=== PATIENT | male | born 1970 | race American Indian/Alaskan Native ===

== ENCOUNTER 2017-06-13 12:49 | Emergency (ER) | payer OTHER ==
--- NOTE | 2017-06-13 14:13 | Cat Scan Report ---
FINAL REPORT EXAM: CT HEAD/BRAIN WO CON HISTORY: persistent headache TECHNIQUE: CT of the head was performed. No intravenous contrast was administered. PRIORS: None. FINDINGS: There is no evidence of intracranial hemorrhage. There is no edema, mass effect or midline shift. There are no abnormal extra-axial fluid collections. The ventricles are appropriate for brain volume. There is no skull fracture seen. The visualized aspects of the sinuses are clear. IMPRESSION: There is no acute intracranial abnormality identified.
--- NOTE | 2017-06-13 14:21 | Emergency Department Report ---
ED Headache HPI - General Chief Complaint: Headache Stated Complaint: MARTÍNEZ FOR A WEEK Time Seen by Provider: 06/13/17 13:26 - History of Present Illness Initial Comments: 47-year-old male past medical history none presents with complaint of nearly 2 weeks of anterior headache intermittent. Patient denies fever chills nausea vomiting photo or phonophobia denies any aura. States he has had some headaches similar to this in the past. Patient is fully awake alert and oriented 3. Denies any associated lightheadedness or dizziness. States he has some dental cavities which he has not had addressed. States he has had cavity or for some time denies any possible drainage from mouth currently adamantly denies fevers or chills. No visible facial swelling. Patient denies nausea vomiting fever chills chest pain palpitations shortness of breath up or lower extremity paresthesias. Denies any trauma to head or neck. Patient is fully lucid ambulatory and cooperative during exam. Accompanied by at bedside. Patient denies blurry vision lightheadedness or vertigo associated with headache. Currently a 5 out of 10. Timing/Duration: other (2 weeks) Quality: moderate Head Injury Location: frontal Recent Head Trauma: no recent headache/trauma Modifying Factors: improves with: cold therapy Associated Symptoms: denies symptoms Allergies/Adverse Reactions: Allergies No Known Allergies Allergy (Verified 06/13/17 12:56) Home Medications: Ambulatory Orders Amoxicillin 500 mg PO BID #30 capsule 06/13/17 Chlorhexidine Mouthwash [Peridex] 15 ml MM BID #1 bottle 06/13/17 Naproxen 500 mg PO BID PRN #30 tablet 06/13/17 ED Review of Systems ROS: Stated complaint: MARTÍNEZ FOR A WEEK Other details as noted in HPI Constitutional: denies: chills, fever Eyes: denies: eye pain, eye discharge, vision change ENT: dental pain. denies: ear pain, throat pain Respiratory: denies: cough, shortness of breath, wheezing Cardiovascular: denies: chest pain, palpitations Endocrine: no symptoms reported Gastrointestinal: denies: abdominal pain, nausea, diarrhea Genitourinary: denies: urgency, dysuria Musculoskeletal: denies: back pain, joint swelling, arthralgia Skin: denies: rash, lesions Neurological: as per HPI, headache. denies: weakness, paresthesias Psychiatric: denies: anxiety, depression Hematological/Lymphatic: denies: easy bleeding, easy bruising ED Past Medical Hx - Past Medical History Previous Medical History?: No - Surgical History Past Surgical History?: Yes Additional Surgical History: Left hand surgery - Social History Smoking Status: Never Smoker Substance Use Type: None - Medications Home Medications: Home Medications Medication Instructions Recorded Confirmed Last Taken Type Amoxicillin 500 mg PO BID #30 capsule 06/13/17 Unknown Rx Chlorhexidine Mouthwash [Peridex] 15 ml MM BID #1 bottle 06/13/17 Unknown Rx Naproxen 500 mg PO BID PRN #30 tablet 06/13/17 Unknown Rx ED Physical Exam - General Limitations: No Limitations General appearance: alert, in no apparent distress - Head Head exam: Present: atraumatic, normocephalic - Eye Eye exam: Present: normal appearance, PERRL, EOMI Pupils: Present: normal accommodation - ENT ENT exam: Present: normal exam, mucous membranes moist - Expanded ENT Exam Expanded Teeth exam: Present: dental caries 1 - Dental Tenderness (dental cavity here) - Neck Neck exam: Present: normal inspection, full ROM (neck flexiona and extension fully intact) - Respiratory Respiratory exam: Present: normal lung sounds bilaterally. Absent: respiratory distress - Cardiovascular Cardiovascular Exam: Present: regular rate, normal rhythm. Absent: systolic murmur, diastolic murmur, rubs, gallop - GI/Abdominal GI/Abdominal exam: Present: soft, normal bowel sounds - Rectal Rectal exam: Present: deferred - Extremities Exam Extremities exam: Present: normal inspection - Back Exam Back exam: Present: normal inspection - Neurological Exam Neurological exam: Present: alert, oriented X3, CN II-XII intact, normal gait - Expanded Neurological Exam Expanded Patient oriented to: Present: person, place, time Cranial nerves: EOM's Intact: Normal, Facial Sensation: Normal Cerebellar function: Finger to Nose: Normal, Heel to Richardson: Normal, Romberg: Normal Sensory exam: Upper Extremity Light Touch: Normal, Lower Extremity Light Touch: Normal Motor strength exam: RUE: 5, LUE: 5, RLE: 5, LLE: 5 DTR: tricep (R): 3+, tricep (L): 3+, knee (R): 3+, knee (L): 3+ Best Eye Response (Cristiane): (4) open spontaneously Best Motor Response (Foster): (6) obeys commands Best Verbal Response (Cristiane): (5) oriented Cristiane Total: 15 - Psychiatric Psychiatric exam: Present: normal affect, normal mood - Skin Skin exam: Present: warm, dry, intact, normal color. Absent: rash ED Course Vital Signs 06/13/17 06/13/17 12:56 14:41 Temperature 98.4 F Pulse Rate 97 H Respiratory 18 18 Rate Blood Pressure 161/93 O2 Sat by Pulse 98 Oximetry ED Medical Decision Making - Medical Decision Making A/P: Migraine headache, dental cavity 1-naproxen when necessary, amoxicillin ten-day course, Orajel when necessary, Peridex mouthwash daily basis 2- I provided patient with information for multiple dental clinics to follow up and stressed the importance of dental follow-up as he has multiple cavities that require dental fixation or instrumentation 3- no clinical signs of facial abscess, no Adi's angina, no induration or cellulitis of floor of mouth or tongue 4- patient able to tolerate by mouth before discharge 5- no signs of facial infection. Advised patient that if he does not take antibiotics with follow-up with a dentist as soon as possible that a can result in potentially serious or dangerous infection to develop in jaw or face. Patient states that he understood these instructions. I advised patient to return to the ED for any persistent unrelenting nausea or vomiting fever or chills or headaches. 6-CT brain unremarkable. Patient is fully lucid awake alert and oriented during clinical exam no neurological deficits on clinical exam. . Cranial nerves 2, 3, 4, 5, 6, 7, 8,10, 11, 12 intact on clinical exam, patient is fully lucid awake alert and oriented 3 conversant. Denies any upper or lower extremity paresthesias and has 5/5 strength in bilateral upper and lower extremities on clinical exam. Critical care attestation.: If time is entered above; I have spent that time in minutes in the direct care of this critically ill patient, excluding procedure time. ED Disposition Clinical Impression: Dental cavity Migraine Qualifiers: Migraine type: without aura Status migrainosus presence: without status migrainosus Intractability: not intractable Qualified Code(s): G43.009 - Migraine without aura, not intractable, without status migrainosus Disposition: - TO HOME OR SELFCARE Is pt being admited?: No Does the pt Need Aspirin: No Condition: Stable Instructions: Migraine Headache (ED), Tension Headache (ED), Acute Headache (ED ), Dental Caries (ED) Additional Instructions: [email or web address] Prescriptions: Amoxicillin 500 mg PO BID #30 capsule Chlorhexidine Mouthwash [Peridex] 15 ml MM BID #1 bottle Naproxen 500 mg PO BID PRN #30 tablet PRN Reason: Pain Referrals: [facility] [place] [Outside] - 3-5 Days [facility] [Outside] - 3-5 Days PRIMARY CARE,MD [Primary Care Provider] - 3-5 Days [facility] [Outside] - 3-5 Days Forms: Accompanied Note, Work/School Release Form(ED) Time of Disposition: 14:38
[2017-06-13] MEDS ORDERED: MOTRIN PO ONE (14:22)
[2017-06-13] MEDS ORDERED: REGLAN PO ONE (14:22)
[2017-06-13 15:42] VITALS: BP 141/98
== END 2017-06-13 15:39 | disposition home or self-care (01) ==
LOC: ED 12:49
DX: K02.9 Dental caries, unspecified (principal); G43.909 Migraine, unspecified, not intractable, without status migrainosus
CPT/HCPCS: 70450

== ENCOUNTER 2017-09-12 14:42 | Emergency (ER) | payer OTHER ==
--- NOTE | 2017-09-12 17:53 | Emergency Department Report ---
Blank Doc - Documentation Documentation: She is a 47-year-old male that presents emergency room with a productive cough with yellow sputum 2 weeks. Patient complains of fever and body aches 2 days. Patient complains of nasal congestion and feeling weak 2 days. Patient denies other past medical history allergies. Patient denies chest pain shortness breath. Due to the length of time of complaints will order a CBC, chest x-ray, CMP, flu and strep. Lung sounds are clear to auscultation throat is red.
[2017-09-12 18:09] LABS: Hematocrit 44.7 % (35.5-45.6); Mean Corpuscular HGB Conc 34 % (32-34); Mean Corpuscular Hemoglobin 31 pg (28-32); Mean Corpuscular Volume 91 fl (84-94); Platelet Count 174 K/mm3 (140-440); Red Cell Distribution Width 13.9 % (13.2-15.2)
[2017-09-12 18:31] LABS: BUN/Creatinine Ratio 13; Blood Urea Nitrogen 13 mg/dL (9-20); Calcium 9.1 mg/dL (8.4-10.2); Hemolysis Index 5
--- NOTE | 2017-09-12 18:31 | XRay Report ---
FINAL REPORT PROCEDURE: XR CHEST ROUTINE 2V TECHNIQUE: PA and lateral chest radiographs were obtained. CPT 37648 HISTORY: Upper Respiratory Infection COMPARISON: No prior studies are available for comparison. FINDINGS: Heart: Normal. Mediastinum/Vessels: Normal. Lungs/Pleural space: Normal. Bony thorax: No acute osseous abnormality. Other: IMPRESSION: Negative examination.
[2017-09-12] MEDS ORDERED: DUONEB *Not for PRN Use IH ONE (19:23)
--- NOTE | 2017-09-12 19:27 | Emergency Department Report ---
- General Chief Complaint: Upper Respiratory Infection Stated Complaint: FLU LIKE SYMPTOMS Time Seen by Provider: 09/12/17 19:10 Source: patient Mode of arrival: Ambulatory Limitations: No Limitations - History of Present Illness Initial Comments: 47-year-old male past medical history smoker presents with complaint of 2 weeks of slightly productive cough with 2 days of body aches and nasal congestion and coughing fits. Patient denies chest pain palpitations does state that after coughing fits he is short of breath. Denies any pleuritic chest pain. Denies any nausea or vomiting. Patient is awake alert and oriented 3 fully lucid. Primarily complaining of cough. States he has sore throat after coughing. States that his may also have cold like symptoms. Patient speaking in full sentences. States he has been taking some abeq-qjs-vlzxrcj medicines with minimal relief of his cough. Patient's screening by ED attending earlier. MD Complaint: cough, sore throat, rhinorrhea, nasal congestion Onset/Timin -: week(s) Severity: moderate Improves With: nothing Worsens With: nothing Associated Symptoms: myalgias, cough Treatments Prior to Arrival: none - Related Data Previous Rx's Medication Instructions Recorded Last Taken Type Amoxicillin 500 mg PO BID #30 capsule 06/13/17 Unknown Rx Chlorhexidine Mouthwash [Peridex] 15 ml MM BID #1 bottle 06/13/17 Unknown Rx Naproxen 500 mg PO BID PRN #30 tablet 06/13/17 Unknown Rx Albuterol Sulfate [Ventolin Hfa] 1 puff IH Q4H PRN #1 hfa.aer.ad 09/12/17 Unknown Rx Azithromycin [Zithromax Z-DAKOTA] 250 mg PO QDAY #1 pack 09/12/17 Unknown Rx Ibuprofen [Motrin] 600 mg PO Q8H PRN #15 tablet 09/12/17 Unknown Rx Phenylephrine/Dm/Acetaminop/GG 10 ml PO Q4H PRN #1 liquid 09/12/17 Unknown Rx [Mucinex Smvm-Lny-Qbqwqeqjvc Lq] Allergies Allergy/AdvReac Type Severity Reaction Status Date / Time No Known Allergies Allergy Verified 06/13/17 12:56 ED Review of Systems ROS: Stated complaint: FLU LIKE SYMPTOMS Other details as noted in HPI Constitutional: malaise. denies: chills, fever Eyes: denies: eye pain, eye discharge, vision change ENT: denies: ear pain, throat pain Respiratory: cough. denies: shortness of breath, wheezing Cardiovascular: denies: chest pain, palpitations Endocrine: no symptoms reported Gastrointestinal: denies: abdominal pain, nausea, diarrhea Genitourinary: denies: urgency, dysuria Musculoskeletal: denies: back pain, joint swelling, arthralgia Skin: denies: rash, lesions Neurological: denies: headache, weakness, paresthesias Psychiatric: denies: anxiety, depression Hematological/Lymphatic: denies: easy bleeding, easy bruising ED Past Medical Hx - Past Medical History Previous Medical History?: No - Surgical History Additional Surgical History: Left hand surgery - Social History Smoking Status: Current Every Day Smoker Substance Use Type: Alcohol - Medications Home Medications: Home Medications Medication Instructions Recorded Confirmed Last Taken Type Amoxicillin 500 mg PO BID #30 capsule 06/13/17 Unknown Rx Chlorhexidine Mouthwash [Peridex] 15 ml MM BID #1 bottle 06/13/17 Unknown Rx Naproxen 500 mg PO BID PRN #30 tablet 06/13/17 Unknown Rx Albuterol Sulfate [Ventolin Hfa] 1 puff IH Q4H PRN #1 hfa.aer.ad 09/12/17 Unknown Rx Azithromycin [Zithromax Z-DAKOTA] 250 mg PO QDAY #1 pack 09/12/17 Unknown Rx Ibuprofen [Motrin] 600 mg PO Q8H PRN #15 tablet 09/12/17 Unknown Rx Phenylephrine/Dm/Acetaminop/GG 10 ml PO Q4H PRN #1 liquid 09/12/17 Unknown Rx [Mucinex Nocs-Ufm-Wdbkarlacl Lq] ED Physical Exam - General Limitations: No Limitations General appearance: alert, in no apparent distress - Head Head exam: Present: atraumatic, normocephalic - Eye Eye exam: Present: normal appearance, PERRL, EOMI - ENT ENT exam: Present: normal exam, normal orophraynx, mucous membranes moist - Neck Neck exam: Present: normal inspection - Respiratory Respiratory exam: Present: wheezes (slight wheezing left lung field). Absent: respiratory distress - Cardiovascular Cardiovascular Exam: Present: regular rate, normal rhythm. Absent: systolic murmur, diastolic murmur, rubs, gallop - GI/Abdominal GI/Abdominal exam: Present: soft (abdomen soft nontender nondistended), normal bowel sounds - Rectal Rectal exam: Present: deferred - Extremities Exam Extremities exam: Present: normal inspection - Back Exam Back exam: Present: normal inspection - Neurological Exam Neurological exam: Present: alert, oriented X3 - Psychiatric Psychiatric exam: Present: normal affect, normal mood - Skin Skin exam: Present: warm, dry, intact, normal color. Absent: rash ED Course Vital Signs 09/12/17 14:48 Temperature 98.8 F Pulse Rate 91 H Respiratory 18 Rate Blood Pressure 136/95 O2 Sat by Pulse 97 Oximetry ED Medical Decision Making - Lab Data Result diagrams: 09/12/17 17:58 09/12/17 17:58 - Medical Decision Making A/P: Acute bronchitis 1-albuterol inhaler, Mucinex, Tessalon Perles when necessary 2-Z-Dakota as per 3-chest x-ray unremarkable, CBC and BMP unremarkable, Monospot test neg 4- follow-up with primary care doctor, vital signs stable for discharge. I advised patient to follow up with primary care or to return to the ED for any inability to tolerate by mouth fluid or food persistent nausea and vomiting severe fevers and chills or fevers persistently above 100.F4 despite antipyretic use, severe lethargy. Patient stated he understood my instructions. I advised patient to remain well-hydrated. Critical care attestation.: If time is entered above; I have spent that time in minutes in the direct care of this critically ill patient, excluding procedure time. ED Disposition Clinical Impression: Upper respiratory infection Qualifiers: URI type: unspecified URI Qualified Code(s): J06.9 - Acute upper respiratory infection, unspecified Acute bronchitis Qualifiers: Bronchitis organism: unspecified organism Qualified Code(s): J20.9 - Acute bronchitis, unspecified Disposition: DC-01 TO HOME OR SELFCARE Is pt being admited?: No Does the pt Need Aspirin: No Condition: Stable Instructions: Acute Bronchitis (ED), Upper Respiratory Infection (ED), Cold Symptoms (ED) Prescriptions: Albuterol Sulfate [Ventolin Hfa] 1 puff IH Q4H PRN #1 hfa.aer.ad PRN Reason: Wheezing Azithromycin [Zithromax Z-DAKOTA] 250 mg PO QDAY #1 pack Ibuprofen [Motrin] 600 mg PO Q8H PRN #15 tablet PRN Reason: Pain Phenylephrine/Dm/Acetaminop/GG [Mucinex Imgh-Jeu-Cglyeelqje Lq] 10 ml PO Q4H PRN #1 liquid PRN Reason: Cough Referrals: [facility] [Outside] - 3-5 Days [facility] [Outside] - 3-5 Days Forms: Accompanied Note, Work/School Release Form(ED) Time of Disposition: 19:29
[2017-09-12 21:06] LABS: Basophils % (Manual) 0 % (0.0-1.8); Platelet Estimate Consistent w Auto; RBC Morphology Normal; Total Cells Counted 100
[2017-09-12 22:37] VITALS: BP 146/79
== END 2017-09-12 19:51 | disposition home or self-care (01) ==
LOC: ED 14:42
DX: J06.9 Acute upper respiratory infection, unspecified (principal); J20.9 Acute bronchitis, unspecified; F17.200 Nicotine dependence, unspecified, uncomplicated
CPT/HCPCS: 36415; 71046; 80048; 85007; 85025; 86308; 87116; 87400; 87430; 94640; 99284

== ENCOUNTER 2017-11-09 20:29 | Emergency (ER) | payer OTHER ==
[2017-11-09 21:01] VITALS: BP 134/90
--- NOTE | 2017-11-09 22:31 | XRay Report ---
FINAL REPORT EXAM: XR KNEE 3V RT HISTORY: fall and twisted knee COMPARISON: None available. FINDINGS: Three views of right knee obtained. Tiny suprapatellar effusion. Bony structures are intact. Joint spaces are preserved. No acute fracture dislocation. IMPRESSION: No acute bony abnormality.
[2017-11-09] MEDS ORDERED: PERCOCET 5/325 ONE (22:58)
[2017-11-09] MEDS ORDERED: PERCOCET 5/325 PO ONE (23:03)
[2017-11-09] MEDS ORDERED: TORADOL IM ONE (23:52)
--- NOTE | 2017-11-09 23:55 | Emergency Department Report ---
ED Lower Extremity HPI - General Chief Complaint: Extremity Injury, Lower Stated Complaint: RT KNEE PAIN Time Seen by Provider: 11/09/17 23:40 Source: patient Mode of arrival: Wheelchair Limitations: No Limitations - History of Present Illness Initial Comments: 47-year-old -[place] male comes to the emergency room status post a 10- month-old infant female. Patient put it is twisted his right knee and states he felt something pop. This happened about 1 hour and half prior to arrival. Patient reports no past medical history currently takes no medications on a daily basis and has no known drug allergies. MD Complaint: knee injury -: This evening Injury: Knee: Right (twisted and heard something pop. Difficulty bearing weight ) Type of Injury: eversion Place: street/outdoors Severity: severe Severity scale (0 -10): 10 Context: fall Associated Symptoms: snap/pop sensation, unable to bear weight - Related Data Previous Rx's Medication Instructions Recorded Last Taken Type Amoxicillin 500 mg PO BID #30 capsule 06/13/17 Unknown Rx Chlorhexidine Mouthwash [Peridex] 15 ml MM BID #1 bottle 06/13/17 Unknown Rx Albuterol Sulfate [Ventolin Hfa] 1 puff IH Q4H PRN #1 hfa.aer.ad 09/12/17 Unknown Rx Azithromycin [Zithromax Z-DAKOTA] 250 mg PO QDAY #1 pack 09/12/17 Unknown Rx Ibuprofen [Motrin] 600 mg PO Q8H PRN #15 tablet 09/12/17 Unknown Rx Phenylephrine/Dm/Acetaminop/GG 10 ml PO Q4H PRN #1 liquid 09/12/17 Unknown Rx [Mucinex Wuty-Cea-Aaxymheqfu Lq] Acetaminophen/Codeine [Tylenol 1 tab PO Q6H PRN #12 tab 11/09/17 Unknown Rx /Codeine # 3 tab] Naproxen 500 mg PO BID PRN #30 tablet 11/09/17 Unknown Rx Allergies Allergy/AdvReac Type Severity Reaction Status Date / Time No Known Allergies Allergy Verified 06/13/17 12:56 ED Review of Systems ROS: Stated complaint: RT KNEE PAIN Other details as noted in HPI Comment: All other systems reviewed and negative Gastrointestinal: denies: abdominal pain, nausea, diarrhea Genitourinary: denies: urgency, dysuria Musculoskeletal: arthralgia (right knee) Skin: denies: rash, lesions ED Past Medical Hx - Past Medical History Previous Medical History?: No - Surgical History Past Surgical History?: Yes Additional Surgical History: Left hand surgery - Social History Smoking Status: Current Every Day Smoker Substance Use Type: None - Medications Home Medications: Home Medications Medication Instructions Recorded Confirmed Last Taken Type Amoxicillin 500 mg PO BID #30 capsule 06/13/17 Unknown Rx Chlorhexidine Mouthwash [Peridex] 15 ml MM BID #1 bottle 06/13/17 Unknown Rx Albuterol Sulfate [Ventolin Hfa] 1 puff IH Q4H PRN #1 hfa.aer.ad 09/12/17 Unknown Rx Azithromycin [Zithromax Z-DAKOTA] 250 mg PO QDAY #1 pack 09/12/17 Unknown Rx Ibuprofen [Motrin] 600 mg PO Q8H PRN #15 tablet 09/12/17 Unknown Rx Phenylephrine/Dm/Acetaminop/GG 10 ml PO Q4H PRN #1 liquid 09/12/17 Unknown Rx [Mucinex Ufpo-Pql-Cijjcqmtfv Lq] Acetaminophen/Codeine [Tylenol 1 tab PO Q6H PRN #12 tab 11/09/17 Unknown Rx /Codeine # 3 tab] Naproxen 500 mg PO BID PRN #30 tablet 11/09/17 Unknown Rx ED Physical Exam - General Limitations: No Limitations General appearance: alert, in no apparent distress, other (appears to be in pain ) - Head Head exam: Present: atraumatic, normocephalic - Neck Neck exam: Present: normal inspection - Expanded Lower Extremity Exam Right Hip exam: Present: full ROM. Absent: tenderness Upper Leg exam: Present: normal inspection, full ROM. Absent: tenderness Knee exam: Present: tenderness (posterior anterior lateral and medial of the patella,), swelling (supra patella), full knee extension. Absent: abrasion, laceration, ecchymosis, deformity Lower Leg exam: Present: normal inspection, full ROM. Absent: tenderness Ankle exam: Present: normal inspection, full ROM Foot/Toe exam: Present: normal inspection, full ROM Neuro vascular tendon exam: Present: no vascular compromise ED Course Vital Signs 11/09/17 11/09/17 20:53 21:16 Temperature 98.5 F 98.5 F Pulse Rate 77 77 Respiratory 18 20 Rate Blood Pressure 134/90 134/90 O2 Sat by Pulse 99 100 Oximetry ED Lower Extremity MDM - Radiology Data Radiology results: report reviewed, image reviewed FINDINGS: Three views of right knee obtained. Tiny suprapatellar effusion. Bony structures are intact. Joint spaces are preserved. No acute fracture dislocation. IMPRESSION: No acute bony abnormality. Transcribed By: LMA Dictated By: LEE DENIS MD Electronically Authenticated By: LEE DENIS MD Signed Date/Time: 11/09/17 9880 Critical care attestation.: If time is entered above; I have spent that time in minutes in the direct care of this critically ill patient, excluding procedure time. ED Disposition Clinical Impression: Right knee injury Qualifiers: Encounter type: initial encounter Qualified Code(s): S89.91XA - Unspecified injury of right lower leg, initial encounter Disposition: TO HOME OR SELFCARE Is pt being admited?: No Does the pt Need Aspirin: No Condition: Stable Instructions: Arthralgia (ED), Knee Pain (ED), Knee Effusion (ED) Additional Instructions: Please take pain medication as prescribed. Please be sure to eat prior to taking Naprosyn. Please do not operate heavy machinery while taking Tylenol No. 3. Please follow up with orthopedist in the next 24-48 hours. Please use crutches, no weightbearing to the right knee/leg. Wear knee immobilizer and only take off to bathe or shower. Prescriptions: Acetaminophen/Codeine [Tylenol /Codeine # 3 tab] 1 tab PO Q6H PRN #12 tab PRN Reason: Pain Naproxen 500 mg PO BID PRN #30 tablet PRN Reason: Pain Referrals: PRIMARY CARE, [Primary Care Provider] - 3-5 Days TRE MINAYA MD [Staff Physician] - 3-5 Days DELGADO CHAIREZ MD [Staff Physician] - 3-5 Days Forms: Accompanied Note, Work/School Release Form(ED)
== END 2017-11-10 00:10 | disposition home or self-care (01) ==
LOC: ED 20:29
DX: S89.91XA Unspecified injury of right lower leg, initial encounter (principal); F17.200 Nicotine dependence, unspecified, uncomplicated; X58.XXXA Exposure to other specified factors, initial encounter; Y93.89 Activity, other specified; Y92.89 Other specified places as the place of occurrence of the external cause; Y99.8 Other external cause status
CPT/HCPCS: 29505; 73562; 96372; 99284; J1885

== ENCOUNTER 2018-01-22 20:43 | Emergency (ER) | payer OTHER ==
[2018-01-22 21:07] VITALS: BP 148/97
--- NOTE | 2018-01-22 22:34 | Emergency Department Report ---
ED ENT HPI - General Chief complaint: Earache Stated complaint: EAR BLEEDING FROM INSIDE Time Seen by Provider: 01/22/18 22:30 Source: patient Mode of arrival: Ambulatory Limitations: No Limitations - History of Present Illness Initial comments: ear pain and bleeding after attempting to clean with qtip 2 hrs ago pain is 4/ 10 aching no loss of hearing , no tinnitus no fever MD complaint: ear pain Onset/Timin -: hour(s) Location: L ear Severity: moderate Severity scale (0 -10): 4 Quality: aching Consistency: constant Improves with: none Worsens with: movement Context- Ear: direct trauma, other ("I stuck a q tip in my ear") Associated Symptoms: fever. denies: cough, gum swelling, toothache, pain with swallowing, sore throat, tinnitus, hearing loss, discharge from ear, rhinorrhea - Related Data Previous Rx's Medication Instructions Recorded Last Taken Type Amoxicillin 500 mg PO BID #30 capsule 06/13/17 Unknown Rx Chlorhexidine Mouthwash [Peridex] 15 ml MM BID #1 bottle 06/13/17 Unknown Rx Albuterol Sulfate [Ventolin Hfa] 1 puff IH Q4H PRN #1 hfa.aer.ad 09/12/17 Unknown Rx Azithromycin [Zithromax Z-DAKOTA] 250 mg PO QDAY #1 pack 09/12/17 Unknown Rx Ibuprofen [Motrin] 600 mg PO Q8H PRN #15 tablet 09/12/17 Unknown Rx Phenylephrine/Dm/Acetaminop/GG 10 ml PO Q4H PRN #1 liquid 09/12/17 Unknown Rx [Mucinex Fjkv-Sza-Wfmzibeiwy Lq] Acetaminophen/Codeine [Tylenol 1 tab PO Q6H PRN #12 tab 11/09/17 Unknown Rx /Codeine # 3 tab] Naproxen 500 mg PO BID PRN #30 tablet 11/09/17 Unknown Rx Cipro/Dexameth 0.3/0.1% [Ciprodex 4 drops OT BID 5 Days #1 bottle 01/22/18 Unknown Rx OTIC] Ibuprofen 800 mg PO TID PRN #30 tablet 01/22/18 Unknown Rx Allergies Allergy/AdvReac Type Severity Reaction Status Date / Time No Known Allergies Allergy Verified 06/13/17 12:56 ED Dental HPI - General Chief complaint: Earache Stated complaint: EAR BLEEDING FROM INSIDE Time Seen by Provider: 01/22/18 22:30 Source: patient Mode of arrival: Ambulatory Limitations: No Limitations - Related Data Previous Rx's Medication Instructions Recorded Last Taken Type Amoxicillin 500 mg PO BID #30 capsule 06/13/17 Unknown Rx Chlorhexidine Mouthwash [Peridex] 15 ml MM BID #1 bottle 06/13/17 Unknown Rx Albuterol Sulfate [Ventolin Hfa] 1 puff IH Q4H PRN #1 hfa.aer.ad 09/12/17 Unknown Rx Azithromycin [Zithromax Z-DAKOTA] 250 mg PO QDAY #1 pack 09/12/17 Unknown Rx Ibuprofen [Motrin] 600 mg PO Q8H PRN #15 tablet 09/12/17 Unknown Rx Phenylephrine/Dm/Acetaminop/GG 10 ml PO Q4H PRN #1 liquid 09/12/17 Unknown Rx [Mucinex Oqzq-Syb-Mwemwwoqpl Lq] Acetaminophen/Codeine [Tylenol 1 tab PO Q6H PRN #12 tab 11/09/17 Unknown Rx /Codeine # 3 tab] Naproxen 500 mg PO BID PRN #30 tablet 11/09/17 Unknown Rx Cipro/Dexameth 0.3/0.1% [Ciprodex 4 drops OT BID 5 Days #1 bottle 01/22/18 Unknown Rx OTIC] Ibuprofen 800 mg PO TID PRN #30 tablet 01/22/18 Unknown Rx Allergies Allergy/AdvReac Type Severity Reaction Status Date / Time No Known Allergies Allergy Verified 06/13/17 12:56 ED Review of Systems ROS: Stated complaint: EAR BLEEDING FROM INSIDE Other details as noted in HPI Constitutional: denies: chills, fever Eyes: denies: eye pain, eye discharge, vision change ENT: ear pain. denies: throat pain, dental pain, hearing loss, epistaxis, congestion Respiratory: denies: cough, shortness of breath, wheezing Cardiovascular: denies: chest pain, palpitations Endocrine: no symptoms reported Gastrointestinal: denies: abdominal pain, nausea, diarrhea Genitourinary: denies: urgency, dysuria Musculoskeletal: denies: back pain, joint swelling, arthralgia Skin: denies: rash, lesions Neurological: denies: headache, weakness, paresthesias Psychiatric: denies: anxiety, depression Hematological/Lymphatic: denies: easy bleeding, easy bruising ED Past Medical Hx - Past Medical History Previous Medical History?: No - Surgical History Additional Surgical History: Left hand surgery,right leg sx - Social History Smoking Status: Current Every Day Smoker Substance Use Type: Alcohol, Marijuana - Medications Home Medications: Home Medications Medication Instructions Recorded Confirmed Last Taken Type Amoxicillin 500 mg PO BID #30 capsule 06/13/17 Unknown Rx Chlorhexidine Mouthwash [Peridex] 15 ml MM BID #1 bottle 06/13/17 Unknown Rx Albuterol Sulfate [Ventolin Hfa] 1 puff IH Q4H PRN #1 hfa.aer.ad 09/12/17 Unknown Rx Azithromycin [Zithromax Z-DAKOTA] 250 mg PO QDAY #1 pack 09/12/17 Unknown Rx Ibuprofen [Motrin] 600 mg PO Q8H PRN #15 tablet 09/12/17 Unknown Rx Phenylephrine/Dm/Acetaminop/GG 10 ml PO Q4H PRN #1 liquid 09/12/17 Unknown Rx [Mucinex Oxlm-Jbw-Wwrlixbsvl Lq] Acetaminophen/Codeine [Tylenol 1 tab PO Q6H PRN #12 tab 11/09/17 Unknown Rx /Codeine # 3 tab] Naproxen 500 mg PO BID PRN #30 tablet 11/09/17 Unknown Rx Cipro/Dexameth 0.3/0.1% [Ciprodex 4 drops OT BID 5 Days #1 bottle 01/22/18 Unknown Rx OTIC] Ibuprofen 800 mg PO TID PRN #30 tablet 01/22/18 Unknown Rx ED Physical Exam - General Limitations: No Limitations General appearance: alert, in no apparent distress - Head Head exam: Present: atraumatic, normocephalic - Eye Eye exam: Present: normal appearance, PERRL, EOMI Pupils: Present: normal accommodation - ENT ENT exam: Present: normal orophraynx, mucous membranes moist, normal external ear exam - Expanded ENT Exam Expanded TM/Canal exam: Erythema: Right TM, Left TM, Canal Discharge: Left TM (mild bloody TM intact ), Canal Tenderness: Left TM - Neck Neck exam: Present: normal inspection, full ROM. Absent: tenderness, lymphadenopathy, thyromegaly - Respiratory Respiratory exam: Present: normal lung sounds bilaterally. Absent: respiratory distress, wheezes, stridor, chest wall tenderness ED Course Vital Signs 01/22/18 21:00 Temperature 98.4 F Pulse Rate 78 Respiratory 20 Rate Blood Pressure 148/97 O2 Sat by Pulse 98 Oximetry ED Medical Decision Making - Medical Decision Making this is OE, noted mild canal dried blood no decreased hearing, plan: ciprodex 4 drops bid x 5 days , follow up with ENT in 2-3 days pt verbalized agreement and understanding of same. Critical care attestation.: If time is entered above; I have spent that time in minutes in the direct care of this critically ill patient, excluding procedure time. ED Disposition Clinical Impression: Otitis externa Qualifiers: Otitis externa type: hemorrhagic Chronicity: acute Laterality: bilateral Qualified Code(s): H60.323 - Hemorrhagic otitis externa, bilateral Disposition: TO HOME OR SELFCARE Is pt being admited?: No Does the pt Need Aspirin: No Condition: Good Instructions: Otitis Externa (ED) Prescriptions: Cipro/Dexameth 0.3/0.1% [Ciprodex OTIC] 4 drops OT BID 5 Days #1 bottle Ibuprofen 800 mg PO TID PRN #30 tablet PRN Reason: Pain , Severe (7-10) Referrals: [facility] [Outside] - 3-5 Days Forms: Work/School Release Form(ED) Time of Disposition: 22:50
== END 2018-01-22 22:53 | disposition home or self-care (01) ==
LOC: ED 20:43
DX: H60.323 Hemorrhagic otitis externa, bilateral (principal); F17.200 Nicotine dependence, unspecified, uncomplicated; F12.10 Cannabis abuse, uncomplicated; Z98.890 Other specified postprocedural states
CPT/HCPCS: 99282

== ENCOUNTER 2018-03-21 10:19 | Emergency (ER) | payer OTHER ==
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
--- NOTE | 2018-03-21 13:46 | XRay Report ---
FINAL REPORT EXAM: XR SPINE CERVICAL 2-3V HISTORY: pain TECHNIQUE: 3 views of the cervical spine PRIORS: None. FINDINGS: Hair artifact limits the examination. Prevertebral soft tissues are without swelling. No evidence of cervical fracture or vertebral compression. Multilevel degenerative changes are present at the vertebral endplates, facet joints, and uncinate joints. Spondylolisthesis is not visualized. Multilevel disc narrowing with adjacent degenerative endplate changes. IMPRESSION: No radiographically visible acute skeletal pathology Multilevel degenerative change and disc narrowing
[2018-03-21] MEDS ORDERED: ULTRAM PO ONE (13:50)
[2018-03-21 14:16] VITALS: BP 140/82
== END 2018-03-21 14:14 | disposition home or self-care (01) ==
LOC: ED 10:19
DX: M54.89 Other dorsalgia (principal); M25.461 Effusion, right knee; G89.29 Other chronic pain; F17.200 Nicotine dependence, unspecified, uncomplicated; F12.10 Cannabis abuse, uncomplicated; V89.2XXA Person injured in unspecified motor-vehicle accident, traffic, initial encounter; Y93.89 Activity, other specified; Y92.89 Other specified places as the place of occurrence of the external cause; Y99.8 Other external cause status
CPT/HCPCS: 72040; 99283

== ENCOUNTER 2018-04-09 17:18 | Emergency (ER) | payer OTHER ==
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
[2018-04-09 19:45] LABS: Hematocrit 44.3 % (35.5-45.6); Hemoglobin 15.1 gm/dl (11.8-15.2); Mean Corpuscular HGB Conc 34 % (32-34); Mean Corpuscular Hemoglobin 32 pg (28-32); Mean Corpuscular Volume 93 fl (84-94); Platelet Count 169 K/mm3 (140-440); Red Blood Count 4.75 M/mm3 (3.65-5.03); Red Cell Distribution Width 14.2 % (13.2-15.2)
[2018-04-09 20:05] LABS: Alanine Aminotransferase 32 units/L (7-56); Albumin 4.1 g/dL (3.9-5); BUN/Creatinine Ratio 17; Blood Urea Nitrogen 15 mg/dL (9-20); Calcium 9.2 mg/dL (8.4-10.2); Hemolysis Index 7
[2018-04-09] MEDS ORDERED: NORVASC PO ONE (20:22)
[2018-04-09 20:49] VITALS: BP 152/76
== END 2018-04-09 20:47 | disposition home or self-care (01) ==
LOC: ED 17:18
DX: I10 Essential (primary) hypertension (principal)
CPT/HCPCS: 36415; 80053; 84443; 85027; 93005; 93010; 99283

== ENCOUNTER 2018-07-05 18:07 | Emergency (ER) | payer SELFPAY ==
[2018-07-05 18:17] VITALS: BP 131/85
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
--- NOTE | 2018-07-05 20:26 | XRay Report ---
FINAL REPORT EXAM: XR SPINE LUMBOSACRAL 2-3V HISTORY: lower back pain COMPARISON: None available. FINDINGS: Four total images of the lumbar spine obtained. Lumbar vertebral body heights are preserved. Mild los s of disc height endplate osteophyte at several levels. Pedicles are intact. No spondylolisthesis. IMPRESSION: Mild degenerative changes.
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
== END 2018-07-05 20:58 | disposition home or self-care (01) ==
LOC: ED 18:07
DX: M54.5 Low back pain (principal); F17.200 Nicotine dependence, unspecified, uncomplicated; V49.49XA Driver injured in collision with other motor vehicles in traffic accident, initial encounter; Y93.89 Activity, other specified; Y92.89 Other specified places as the place of occurrence of the external cause; Y99.8 Other external cause status
CPT/HCPCS: 72072; 72100

== ENCOUNTER 2018-11-16 01:58 | Emergency (ER) | payer OTHER ==
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
[2018-11-16 05:43] VITALS: BP 133/95
== END 2018-11-16 05:45 | disposition home or self-care (01) ==
LOC: ED 01:58
DX: S01.81XA Laceration without foreign body of other part of head, initial encounter (principal); I10 Essential (primary) hypertension; Z87.891 Personal history of nicotine dependence; Z79.899 Other long term (current) drug therapy; Y04.8XXA Assault by other bodily force, initial encounter; Y93.89 Activity, other specified; Y92.89 Other specified places as the place of occurrence of the external cause; Y99.8 Other external cause status
CPT/HCPCS: 70450; 99283

== ENCOUNTER 2018-11-23 08:05 | Emergency (ER) | payer OTHER ==
[2018-11-23 08:12] VITALS: BP 143/95
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
== END 2018-11-23 09:33 | disposition home or self-care (01) ==
LOC: ED 08:05
DX: S01.81XD Laceration without foreign body of other part of head, subsequent encounter (principal); I10 Essential (primary) hypertension; Z87.891 Personal history of nicotine dependence; Z98.890 Other specified postprocedural states; X58.XXXD Exposure to other specified factors, subsequent encounter

== ENCOUNTER 2019-02-26 12:36 | Emergency (ER) | payer OTHER ==
[2019-02-26 13:37] VITALS: BP 136/86
--- NOTE | 2019-02-26 13:39 | Event Note ---
ED Screening Note Date of service: 02/26/19 Time: 13:38 ED Screening Note: 49 y/o male comes in for right elbow swelling and pain times 3 days. This initial assessment/diagnostic orders/clinical plan/treatment(s) is/are subject to change based on patients health status, clinical progression and re- assessment by fellow clinical providers in the ED. Further treatment and workup at subsequent clinical providers discretion. Patient/guardian urged not to elope from the ED as their condition may be serious if not clinically assessed and managed. Initial orders include:
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
== END 2019-02-26 16:23 | disposition home or self-care (01) ==
LOC: ED 12:36
DX: M25.421 Effusion, right elbow (principal); M70.21 Olecranon bursitis, right elbow
CPT/HCPCS: 99282

== ENCOUNTER 2019-03-01 08:06 | Emergency (ER) | payer OTHER ==
[2019-03-01 08:11] VITALS: BP 153/101
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
== END 2019-03-01 11:39 | disposition left against medical advice (07) ==
LOC: ED 08:06
DX: M70.21 Olecranon bursitis, right elbow (principal); I10 Essential (primary) hypertension; F12.10 Cannabis abuse, uncomplicated; Z98.890 Other specified postprocedural states; Z79.899 Other long term (current) drug therapy; Y93.89 Activity, other specified
CPT/HCPCS: 99281

== ENCOUNTER 2019-10-21 19:45 | Emergency (ER) | payer OTHER ==
[2019-10-21 20:15] VITALS: BP 153/106
[2019-10-21] MEDS: HYDROcodone/ACETAMINOPHEN 5-325 MG TAB PO ONE (21:00)
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
== END 2019-10-21 23:10 | disposition home or self-care (01) ==
LOC: ED 19:45
DX: S16.1XXA Strain of muscle, fascia and tendon at neck level, initial encounter (principal); I10 Essential (primary) hypertension; F17.200 Nicotine dependence, unspecified, uncomplicated; Z79.899 Other long term (current) drug therapy; Z98.890 Other specified postprocedural states; V49.49XA Driver injured in collision with other motor vehicles in traffic accident, initial encounter; Y93.89 Activity, other specified; Y92.488 Other paved roadways as the place of occurrence of the external cause; Y99.8 Other external cause status
CPT/HCPCS: 70450; 71046; 72125

== ENCOUNTER 2020-08-26 16:03 | Emergency (ER) | payer SELFPAY ==
[2020-08-26 16:09] VITALS: BP 133/94
[2020-08-26] MEDS ORDERED: LIDOCAINE (1%) 10 MG/1 ML VIAL 20 ML MDV INFILTRATI ONE (16:09)
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
--- NOTE | 2020-08-26 16:40 | XRay Report ---
Right index finger-3 views INDICATION: MAIN. Possible wood splinter in the index finger. COMPARISON: None. IMPRESSION: No radiopaque foreign body or acute osseous abnormality identified. Normal alignment. N o significant DJD. Signer Name: Cyril Marvin MD Signed: 08/26/2020 4:35 PM Workstation Name: [id number]
== END 2020-08-26 18:25 | disposition home or self-care (01) ==
LOC: ED 16:03
DX: L03.011 Cellulitis of right finger (principal); I10 Essential (primary) hypertension; Z79.899 Other long term (current) drug therapy; Z98.890 Other specified postprocedural states

== ENCOUNTER 2021-03-28 23:25 | Emergency (ER) | payer OTHER ==
[2021-03-28 23:40] VITALS: BP 148/97
--- NOTE | 2021-03-29 00:36 | Emergency Department Report ---
ED Back Pain/Injury HPI - General Chief Complaint: Back Pain/Injury Stated Complaint: lower back pains Time Seen by Provider: 03/29/21 00:27 Source: patient Limitations: No Limitations - History of Present Illness Initial Comments: 51-year-old F [place] male just emerged department complaining of back pain seeking analgesic control. States that he was he sustained a fall from a height of 2 feet with his work belt around his waist landing on his back resulting in pain to the lower back and tingling about 1 week week ago out of state. He returned home about 2 days ago and out of his pain medicine he continues to have discomfort. 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 He also refused had epidural for pain control. Reports no loss of bowel bladder, no saddle paresthesia, no incontinence no hematuria no no abdominal no dysuria no fevers, chills, sweats. Pain is dull and throbbing with occasional tingling to his left thigh. Ports no fever, chills, sweats. I was also seen in urgent care earlier today where he states he received a Decadron shot but requesting that we set him up with him neurosurgeon after we concluded our visit here today. MD Complaint: back pain -: Sudden Similar Symptoms Previously: No Place: home - Related Data Previous Rx's Medication Instructions Recorded Last Taken Type traMADoL [Ultram] 50 mg PO Q6HR PRN #10 tablet 03/21/18 Unknown Rx Amlodipine Besylate [Norvasc] 5 mg PO DAILY #30 tablet 04/09/18 Unknown Rx Ketorolac [Toradol] 10 mg PO Q6H PRN #15 tablet 07/05/18 Unknown Rx methocarbamoL [Robaxin-750] 750 mg PO Q8H PRN #20 tablet 07/05/18 Unknown Rx Acetaminophen/Codeine [Tylenol #3] 1 tab PO Q6H PRN #10 tab 11/16/18 Unknown Rx Ketorolac [Toradol] 10 mg PO Q6H PRN #15 tablet 11/16/18 Unknown Rx predniSONE [Deltasone] 50 mg PO QDAY #5 tab 02/26/19 Unknown Rx Methyl Salicylate/Menthol [[place] 1 applicatio TP BID PRN #1 tube 10/21/19 Unknown Rx [place] Active 16%-8% Gel] tiZANidine [Zanaflex 4mg TAB] 4 mg PO Q8H PRN #24 tablet 12/01/19 Unknown Rx Naproxen 500 mg PO BID PRN #30 tablet 08/26/20 Unknown Rx cephALEXin [Keflex] 500 mg PO Q6HR #40 capsule 08/26/20 Unknown Rx traMADoL [Ultram 50 MG tab] 50 mg PO Q6HR PRN #12 tablet 08/26/20 Unknown Rx Ketorolac [Toradol] 10 mg PO Q6H PRN #15 tablet 03/29/21 Unknown Rx methOCARBAMOL [Robaxin] 750 mg PO Q8H PRN #21 tablet 03/29/21 Unknown Rx Allergies Allergy/AdvReac Type Severity Reaction Status Date / Time No Known Allergies Allergy Verified 02/26/19 12:41 ED Review of Systems ROS: Stated complaint: lower back pains Other details as noted in HPI Comment: All other systems reviewed and negative ED Past Medical Hx - Past Medical History Previous Medical History?: Yes Hx Hypertension: Yes Additional medical history: Right knee pain- EARLIER THIS YR. PT CONCERNED IT IS REINJURED - Surgical History Past Surgical History?: Yes Additional Surgical History: Left hand surgery,right leg sx - Social History Smoking Status: Never Smoker Substance Use Type: None - Medications Home Medications: Home Medications Medication Instructions Recorded Confirmed Last Taken Type traMADoL [Ultram] 50 mg PO Q6HR PRN #10 tablet 03/21/18 Unknown Rx Amlodipine Besylate [Norvasc] 5 mg PO DAILY #30 tablet 04/09/18 Unknown Rx Ketorolac [Toradol] 10 mg PO Q6H PRN #15 tablet 07/05/18 Unknown Rx methocarbamoL [Robaxin-750] 750 mg PO Q8H PRN #20 tablet 07/05/18 Unknown Rx Acetaminophen/Codeine [Tylenol #3] 1 tab PO Q6H PRN #10 tab 11/16/18 Unknown Rx Ketorolac [Toradol] 10 mg PO Q6H PRN #15 tablet 11/16/18 Unknown Rx predniSONE [Deltasone] 50 mg PO QDAY #5 tab 02/26/19 Unknown Rx Methyl Salicylate/Menthol [[place] 1 applicatio TP BID PRN #1 tube 10/21/19 Unknown Rx [place] Active 16%-8% Gel] tiZANidine [Zanaflex 4mg TAB] 4 mg PO Q8H PRN #24 tablet 12/01/19 Unknown Rx Naproxen 500 mg PO BID PRN #30 tablet 08/26/20 Unknown Rx cephALEXin [Keflex] 500 mg PO Q6HR #40 capsule 08/26/20 Unknown Rx traMADoL [Ultram 50 MG tab] 50 mg PO Q6HR PRN #12 tablet 08/26/20 Unknown Rx Ketorolac [Toradol] 10 mg PO Q6H PRN #15 tablet 03/29/21 Unknown Rx methOCARBAMOL [Robaxin] 750 mg PO Q8H PRN #21 tablet 03/29/21 Unknown Rx ED Physical Exam - General Limitations: No Limitations General appearance: alert, in no apparent distress - Head Head exam: Present: atraumatic, normocephalic - Eye Eye exam: Present: normal appearance, PERRL, EOMI Pupils: Present: normal accommodation - ENT ENT exam: Present: mucous membranes moist - Neck Neck exam: Present: normal inspection - Respiratory Respiratory exam: Present: normal lung sounds bilaterally. Absent: respiratory distress - Cardiovascular Cardiovascular Exam: Present: regular rate, normal rhythm. Absent: systolic murmur, diastolic murmur, rubs, gallop - GI/Abdominal GI/Abdominal exam: Present: soft, normal bowel sounds - Rectal Rectal exam: Present: deferred - Extremities Exam Extremities exam: Present: normal inspection - Back Exam Back exam: Present: normal inspection, paraspinal tenderness, vertebral tenderness (Tenderness to the left sacroiliac joint with palpation. Straight leg raise does elicit a little bit of discomfort to the back as well. And so does Jared test.). Absent: CVA tenderness (R), CVA tenderness (L) - Neurological Exam Neurological exam: Present: alert, oriented X3, CN II-XII intact, normal gait (He is walking with a walker), reflexes normal, other (Normal muscle tone.). Absent: abnormal gait, motor sensory deficit - Psychiatric Psychiatric exam: Present: normal affect, normal mood. Absent: anxious, flat affect, manic, suicidal ideation - Skin Skin exam: Present: warm, dry, intact, normal color. Absent: rash ED Course Vital Signs 03/28/21 23:36 Temperature 98.0 F Pulse Rate 89 Respiratory 20 Rate Blood Pressure 148/97 O2 Sat by Pulse 97 Oximetry ED Medical Decision Making - Medical Decision Making 51-year-old asthmatic male presents emerged department with lower back pain due to a fall. This present time no urgent or emergent medical kidney condition was . I did also review the notes from the urgent care for which he was seen and during that time that the patient's examination and history did not yield any suspicion for any cauda equina syndrome as examination at this present time has remained stable with no neurological deficits. Case also discussed with the attending dr. Lozano who agrees with the plan of care and also reviewed the notes as well Critical care attestation.: If time is entered above; I have spent that time in minutes in the direct care of this critically ill patient, excluding procedure time. ED Disposition Clinical Impression: Low back pain radiating to left lower extremity Disposition: 01 HOME / SELF CARE / HOMELESS Is pt being admited?: No Does the pt Need Aspirin: No Condition: Stable Instructions: Radiofrequency Lesioning, Care After, Myelogram, [id number], How to Use Cold Therapy, [id number], How to Use Cold Therapy Prescriptions: methOCARBAMOL [Robaxin] 750 mg PO Q8H PRN #21 tablet PRN Reason: Spasms Ketorolac [Toradol] 10 mg PO Q6H PRN #15 tablet PRN Reason: Pain Referrals: [facility] [Provider Group] - 3-5 Days DELGADO CHAIREZ MD [Staff Physician] - 3-5 Days
[2021-03-29] MEDS ORDERED: KETOROLAC 60 MG/2 ML INJ IM ONE (00:45)
[2021-03-29] MEDS ORDERED: oxyCODONE /ACETAMINOPHEN 5-325MG TAB PO ONE (00:45)
== END 2021-03-29 01:00 | disposition home or self-care (01) ==
LOC: ED 23:25
DX: M54.50 Low back pain, unspecified (principal); M79.605 Pain in left leg; I10 Essential (primary) hypertension; M25.561 Pain in right knee; Z98.890 Other specified postprocedural states
CPT/HCPCS: 96372; 99282; J1885